=== PATIENT | male | born 1965 | race Caucasian/White ===

== ENCOUNTER 2021-08-22 09:35 | Emergency (ER) | payer SELFPAY ==
[~2021-08-22] VITALS: Ht 167.6 cm; Wt 73.0 kg
[2021-08-22] MEDS ORDERED: LIDOCAINE HCL/PF 1% 10 MG/ML 5ML VIAL INFIL ONE (10:30)
[2021-08-22] MEDS ORDERED: BACITRACIN ZINC OINT UDPKT TOP ONE (10:30)
[2021-08-22] MEDS ORDERED: IBUP-2029 PO (11:50)
[2021-08-22 12:01] VITALS: BP 140/86
== END 2021-08-22 12:03 | disposition home or self-care (01) ==
LOC: ER 09:59
DX: S01.511A Laceration without foreign body of lip, initial encounter (principal); W22.8XXA Striking against or struck by other objects, initial encounter; Y93.89 Activity, other specified; Y92.89 Other specified places as the place of occurrence of the external cause; Y99.8 Other external cause status
CPT/HCPCS: 12011; 99283; J3490